=== PATIENT | male | born 1965 | race Caucasian/White ===

== ENCOUNTER 2017-10-25 08:56 | Observation (INO) | payer SELFPAY ==
[~2017-10-25] VITALS: Ht 188 cm; Wt 113.2 kg
[~2017-10-25 08:56] MED LIST: ABAC300; ALBU90OI INH; AMLO5 PO; ASPI81CH PO; ATOR20 PO; ATOR80 PO; AZIT500 PO; Aspirin EC81 MG PO; BUPR150ER PO; CEPH500 PO; DIVA500EC PO; Duoneb 2.5-0.5 M3 ML INH; FURO20; FURO20 PO; GABA300 PO; HYDACE5 PO; HYDCHL12.5 PO; IBUP600 PO; LEVFLO500 PO; LEVO750 PO; LISI20 PO; LISI5 PO; Lisinopril2.5 MG PO; MELO7.5 PO; Multivitamin1 EAC1 PO; Norco 5-325 Ta1 EACH PO; OMEP40CA12 PO; OMEPRAZOLE MAGN20 MG PO; ONDA4 PO; OXYACE5T PO; PENVK500 PO; POTA8 PO; Percocet 5-3251 EACH PO; Prednisone20 MG PO; ROBITUSSIN COU118 M1 PO; TOPI25 PO; Zofran Odt4 MG SL; Zofran8 MG PO
[2017-10-25 09:57] LABS: BASOPHILS ABSOLUTE AUTO 0.06 K/mm3 (0.00-0.23); BASOPHILS PERCENT AUTO 1 % (0-2); EOSINOPHILS ABSOLUTE AUTO 0.16 K/mm3 (0.00-0.68); EOSINOPHILS PERCENT AUTO 3 % (0-6); Hematocrit 44.7 % (37.0-53.0); Hemoglobin 15.7 g/dL (13.5-17.5); IMMATURE GRAN ABSOLUTE AUTO 0.01 K/mm3 (0.00-0.10); IMMATURE GRAN PERCENT AUTO 0 % (0-1); LYMPHOCYTES ABSOLUTE AUTO 2.58 K/mm3 (0.84-5.20); LYMPHOCYTES PERCENT AUTO 43 % (21-46); MONOCYTES ABSOLUTE AUTO 0.61 K/mm3 (0.16-1.47); MONOCYTES PERCENT AUTO 10 % (4-13); Mean Corpuscular HGB 31.3 pg (26.0-34.0); Mean Corpuscular HGB Conc 35.1 g/dL (31.5-36.5); Mean Corpuscular Volume 89 fL (80-100); Mean Platelet Volume 11.1 fL (9.1-12.4); NEUTROPHILS ABSOLUTE AUTO 2.64 K/mm3 (1.96-9.15); NEUTROPHILS PERCENT AUTO 44 % (41-73); Platelet Count 225 K/mm3 (150-400); RDW Coefficient Variation 11.6 % (11.7-14.2); RDW Standard Deviation 37.2 fL (35.1-46.3); Red Blood Cell Count 5.01 M/mm3 (4.30-5.90); White Blood Cell Count 6.06 K/mm3 (4.00-11.30)
[2017-10-25 10:16] LABS: Alanine Aminotransfer (ALT/SGP 31 U/L (12-78); Albumin, Blood 4.2 g/dL (3.4-5.0); Albumin/Globulin Ratio 1.2 (0.8-1.8); Alk Phos 66 U/L (50-136); Anion Gap 10 mmol/L (6-16); Aspartate Aminotrans (AST/SGOT 18 U/L (12-37); Bilirubin, Total 0.8 mg/dL (0.1-1.0); Blood Urea Nitrogen 25 mg/dL (8-24); Bun/Creatinine Ratio 27.1 (12.0-20.0); CO2, Blood 24 mmol/L (21-32); Chloride, Blood 105 mmol/L (98-108); Creatinine, Blood 0.92 mg/dL (0.60-1.20); Globulin, Blood 3.5 g/dL (2.2-4.0); Glomerular Filtration Rate >60 (60-); Glucose, Blood 88 mg/dL (70-99); Potassium, Blood 4.3 mmol/L (3.5-5.5); Sodium, Blood 139 mmol/L (136-145); Total Protein, Blood 7.7 g/dL (6.4-8.2); Troponin I <0.015 ng/mL (0.000-0.040)
[2017-10-25 16:16] LABS: Influenza A Negative (NEGATIVE); Influenza B Negative (NEGATIVE)
== END 2017-10-25 17:42 | disposition home or self-care (01) ==
LOC: ER 08:56 → PCU 08:57 → ER 12:59 → PCU 13:10
PROVIDERS: Emergency Medicine; Internal Medicine
DX: R07.89 Other chest pain (principal); I10 Essential (primary) hypertension; R91.1 Solitary pulmonary nodule; F31.9 Bipolar disorder, unspecified; Z87.891 Personal history of nicotine dependence; Z79.899 Other long term (current) drug therapy
CPT/HCPCS: 36415; 71046; 80053; 83880; 84484; 85025; 85379; 87804; 93005; 93010; 93017; 96372; 99285; G0378; J1650; J7030

== ENCOUNTER 2021-03-12 07:34 | Day surgery (SDC) | payer OTHER ==
[~2021-03-12] VITALS: Ht 188 cm; Wt 115.9 kg
[~2021-03-12 07:34] MED LIST changes: +POTA10T PO
--- NOTE | 2021-03-12 11:31 | NUR ---
03/12/21 1131 [address] [place] BUPIVACAINE 0.5% 30 MLS MIXED W/ EPI 0.15 ML PER ORDER TO CONSTITUTE BUPIVACAINE 0.5% 1:200,000 FOR INJECTION AT [facility] BY DR. ESPARZA. DR ESPARZA INJECTED 30 MLS AT [facility]
== END 2021-03-12 12:40 | disposition home or self-care (01) ==
LOC: ORSCSDS 07:34
PROVIDERS: Podiatrist Foot & Ankle Surgery
PROC: 0SGJ04Z Fusion of Left Tarsal Joint with Internal Fixation Device, Open Approach (ICD-10-PCS; principal; 2021-03-12 09:15)
PROC: 0SGG04Z Fusion of Left Ankle Joint with Internal Fixation Device, Open Approach (ICD-10-PCS; principal; 2021-03-12 09:15)
DX: M19.072 Primary osteoarthritis, left ankle and foot (principal); M21.172 Varus deformity, not elsewhere classified, left ankle; I10 Essential (primary) hypertension; N18.9 Chronic kidney disease, unspecified; K21.9 Gastro-esophageal reflux disease without esophagitis; Z79.82 Long term (current) use of aspirin; Z79.899 Other long term (current) drug therapy; G47.33 Obstructive sleep apnea (adult) (pediatric); F31.9 Bipolar disorder, unspecified
CPT/HCPCS: C1713; J0171; J0690; J1100; J1885; J2250; J2405; J2704; J3010; J7120